=== PATIENT | female | born 1945 | race Caucasian/White ===

== ENCOUNTER 2017-11-07 06:37 | Day surgery (SDC) | payer OTHER ==
[2017-11-07] MEDS ORDERED: LR 1,000 ML IV ONE (06:55)
[2017-11-07] MEDS ORDERED: CLINDAMYCIN 900 MG/DEXTROSE 50 ML IV ONE (07:00)
--- NOTE | 2017-11-07 07:12 | PDHPUP ---
History & Physical Update H&P update statement: This history and physical update is based on an assessment of the patient which was completed after admission or registration (within 24 hours), but prior to the surgery/procedure. updated
[2017-11-07 07:20] VITALS: PULSE 67
[2017-11-07] MEDS ORDERED: MIDAZOLAM 2 MG/2 ML VIAL IVP ONE (07:58)
--- NOTE | 2017-11-07 08:00 | PDANEPAE ---
ANE History of Present Illness vascular access port placement ANE Past Medical History - Cardiovascular History Hx Hypertension: Yes Hx Arrhythmias: No Hx Chest Pain: No Hx Coronary Artery / Peripheral Vascular Disease: No Hx CHF / Valvular Disease: No Hx Palpitations: No Cardiovascular History Comment: POSS MILD MURMUR - Pulmonary History Hx COPD: No Hx Asthma/Reactive Airway Disease: No Hx Recent Upper Respiratory Infection: No Hx Oxygen in Use at Home: No Hx Sleep Apnea: No Sleep Apnea Screening Result - Last Documented: Negative - Neurologic History Hx Cerebrovascular Accident: No Hx Seizures: No Hx Dementia: No - Endocrine History Hx Diabetes: Yes Endocrine History Comment: HYPOTHYROID. POSS BORDERLINE DM - NO MEDS - Renal History Hx Renal Disorders: No - Liver History Hx Hepatic Disorders: No - Neurological & Psychiatric Hx Hx Neurological and Psychiatric Disorders: No - Cancer History Hx Cancer: Yes Cancer History Comment: COLON CANCER - Congenital Disorder History Hx Congenital Disorders: No - GI History Hx Gastrointestinal Disorders: No - Other Health History Other Health History: ANEMIA PRIOR TO COLECTOMY IN AUG 2017 HAD TRANSFUSION PRIOR TO SURGERY - TAKES DAILY IRON SUPPLEMENT - Chronic Pain History Chronic Pain: No - Surgical History Prior Surgeries: COLECTOMY 09/03/2017. HIP SURG. HYSTERECTOMY 1978. L HIP REPAIR W/HARDWARE ANE Review of Systems Review of systems is: negative Review of Systems: - Exercise capacity METS (RN): 4 METS ANE Patient History - Allergies Allergies/Adverse Reactions: atorvastatin [From Lipitor] Allergy (Verified 11/06/17 17:35) LISTLESSNESS cephalexin [From Keflex] Allergy (Verified 11/06/17 17:35) Rash levofloxacin [From Levaquin] Allergy (Verified 11/06/17 17:35) Rash Penicillins Allergy (Verified 11/06/17 17:35) SWELLING ARM - Home Medications Home medications: home medication list seen and reviewed Home Medications: Bupropion HCl 11/06/17 [Last Taken 11/07/17] Fluoxetine HCl 11/06/17 [Last Taken 11/07/17] Herbals/Supplements -Info Only 11/06/17 [Last Taken 11/06/17] Iron 11/06/17 [Last Taken 11/07/17] Levothyroxine 11/06/17 [Last Taken 11/07/17] Olmesartan Medoxomil 11/06/17 [Last Taken 11/07/17] Rosuvastatin Calcium 11/06/17 [Last Taken 11/07/17] Vascepa 11/06/17 [Last Taken 11/07/17] - NPO status NPO Since - Liquids (Date): 11/07/17 NPO Since - Liquids (Time): 05:30 NPO Since - Solids (Date): 11/06/17 NPO Since - Solids (Time): 20:00 - Anes Hx Anes Hx: no prior problems - Smoking Hx Smoking Status: Former smoker - Family Anes Hx Family Anes Hx: none Family Hx Anesthesia Complications: NEG ANE Labs/Vital Signs - Vital Signs Blood Pressure: 157/89 Heart Rate: 67 Respiratory Rate: 16 O2 Sat (%): 93 Height: 152.4 cm Weight: 70.307 kg ANE Physical Exam - Airway Neck exam: FROM Mallampati Score: Class 3 Mouth exam: normal dental/mouth exam - Pulmonary Pulmonary: no respiratory distress - Cardiovascular Cardiovascular: regular rate and rhythym - ASA Status ASA Status: II ANE Anesthesia Plan Anesthesia Plan: GA w LMA
[2017-11-07] MEDS ORDERED: BACITRACIN ZINC 14.2 GM OINTTUBE TP ONE (08:05)
[2017-11-07] MEDS ORDERED: LIDOCAINE 1% 300 MG/30 ML SDV ONE (08:05)
[2017-11-07] MEDS ORDERED: BUPIVACAINE 0.5% 30 ML SDV ONE (08:06)
[2017-11-07] MEDS ORDERED: DEXAMETHASONE 4 MG/ML VIAL ONE (08:30)
[2017-11-07] MEDS ORDERED: PROPOFOL 200 MG/20 ML VIAL ONE (08:30)
[2017-11-07] MEDS ORDERED: fentaNYL 100 MCG/2 ML INJ ONE (08:30)
[2017-11-07] MEDS ORDERED: ONDANSETRON 4 MG/2 ML VIAL ONE (08:30)
[2017-11-07] MEDS ORDERED: LIDOCAINE 2% 100 MG/5 ML SYR ONE (08:30)
[2017-11-07] MEDS ORDERED: LABETALOL HCL 5 MG/ML 20 ML MDV IVP PRN (09:05)
[2017-11-07] MEDS ORDERED: OXYCODONE/APAP 5/325 TAB PO PRN (09:05)
[2017-11-07] MEDS ORDERED: HYDROmorphONE/DILAUDID 1 MG/ML INJ IVP PRN (09:05)
[2017-11-07] MEDS ORDERED: fentaNYL 100 MCG/2 ML INJ IVP PRN (09:05)
[2017-11-07] MEDS ORDERED: DEXAMETHASONE 4 MG/ML VIAL IVP PRN (09:05)
[2017-11-07] MEDS ORDERED: PROMETHAZINE HCL 25 MG/ML INJ IVP PRN (09:05)
[2017-11-07] MEDS ORDERED: NALOXONE HCL 0.4 MG/ML INJ IVP PRN (09:05)
[2017-11-07] MEDS ORDERED: ACETAMINOPHEN 500 MG TAB PO PRN (09:05)
[2017-11-07] MEDS ORDERED: HYDROCODONE/APAP 5/325 TAB PO PRN (09:05)
--- NOTE | 2017-11-07 09:07 | POSTANESTH ---
Post Anesthetic Evaluation Cardiovascular Status: Similar to Pre-Op Cond Respiratory Status: Normal, Stable, Similar to Pre-op Cond. Level of Consciousness/Mental Status: Can Participate in Eval, Moderately Sleepy Pain Control: Adequate, Prn Tx Ordered Nausea/Vomiting Control: Adequate, Prn Tx Ordered Complications Possibly Related to Anesthesia: None Noted
[2017-11-07] MEDS ORDERED: PHENYLEPHRINE HCL 100 MCG/ML SYR ONE (09:08)
[2017-11-07 09:47] VITALS: TEMP 97.3
[2017-11-07 10:29] VITALS: BP 162/82; RESP 14; O2SAT 96
--- NOTE | 2017-11-07 10:47 | POSTOPPROG ---
Post Op Note Date of Operation: 11/07/17 Surgeon: Beltran Davis Anesthesiologist: Dr Treviño Anesthesia: GET(General Endotracheal) Pre-op Diagnosis: need for access, for chemo Post-op Diagnosis: same Indication: same Procedure: port placement Inf/Abcess present in the surg proc area at time of surgery?: No Depth: Deep Incisional (Fascial) EBL: Minimal
--- NOTE | 2017-11-07 11:28 | GOP ---
[f rep st] OPERATIVE REPORT DATE OF OPERATION: 11/07/2017 SURGEON: Beltran Davis MD PREOPERATIVE DIAGNOSIS: Colon cancer. POSTOPERATIVE DIAGNOSIS: Colon cancer. PROCEDURE PERFORMED: Left subclavian port placement with fluoroscopic guidance. FINDINGS: Patient was found to have good position and flow of the catheter. DESCRIPTION OF PROCEDURE: Patient was taken to the operating room where she received satisfactory ge neral laryngeal mask anesthesia by Dr. Treviño. She was placed in supine position, prepped and drap ed in the usual sterile fashion and then placed in Trendelenburg. A single stick was made in the lef t subclavian vein. Guidewire was introduced, position was confirmed with fluoroscopy. A subcu pocke t was made in the 2nd intercostal space. Port tubing was passed from that pocket to the subclavian i nsertion site. It was then trimmed to the appropriate length using fluoroscopic guidance and introdu tessy via the introducer sheath and dilator system which was passed over the wire under fluoroscopic gu idance. The catheter was positioned in the right atrium. Good backflow was present. The port was f illed with a heparin flush and then secured to the fascia with 3-0 Vicryl suture. Pocket was closed with 3-0 Vicryl running suture and the skin with a 4-0 Prolene subcuticular stitch. The entrance sit e was also closed with a Prolene mattress suture. All layers were infiltrated with 0.5% Marcaine and then dressed. She tolerated the procedure well. She was taken to recovery room in good condition. There were no complications. /[id number]/MODL
== END 2017-11-07 10:35 | disposition home or self-care (01) ==
LOC: FSGY 06:37
PROVIDERS: ATTEND Surgery
PROC: 0JH60XZ Insertion of Tunneled Vascular Access Device into Chest Subcutaneous Tissue and Fascia, Open Approach (ICD-10-PCS; principal; 2017-11-07 08:30)
PROC: 02HV33Z Insertion of Infusion Device into Superior Vena Cava, Percutaneous Approach (ICD-10-PCS; principal; 2017-11-07 08:30)
DX: C78.5 Secondary malignant neoplasm of large intestine and rectum (principal); E03.9 Hypothyroidism, unspecified; Z87.891 Personal history of nicotine dependence
CPT/HCPCS: C1788; J1100; J1642; J2001; J2250; J2370; J2405; J2704; J3010

== ENCOUNTER 2018-01-25 19:13 | Inpatient (IN) | payer OTHER ==
[2018-01-25] MEDS ORDERED: LIDOCAINE/PRILOCAINE 1 EACH CRTUBE TP ONE (20:02)
[2018-01-25] MEDS ORDERED: NS 500 ML IV ONE ×2 (20:40→23:13)
--- NOTE | 2018-01-25 20:52 | EDPHY ---
H & P Time Seen by Provider: 01/25/18 20:12 HPI/ROS: CHIEF COMPLAINT: Weakness, dehydration, diarrhea HISTORY OF PRESENT ILLNESS: Patient is a 72-year-old female with a history of colon cancer on her 5th round of chemotherapy who presents emergency department with nausea, vomiting and diarrhea. Her symptoms started on Saturday. She saw Dr. Scott in the office. She was treated with IV normal saline. On Saturday her daughter and her son-in-law also got sick with diarrhea. They felt as though"it was a bug."However, the patient's symptoms have persisted. She continues to have episodes of watery diarrhea. She has decreased energy. Mild nausea with no vomiting. REVIEW OF SYSTEMS: My complete review of systems is negative except as mentioned in the HPI. Past Medical/Surgical History: Includes colon cancer, hypothyroidism, hypertension, depression, anemia Past surgical history: Colon resection, left femur, total abdominal hysterectomy Social history: The patient lives at home. She no longer smokes. Smoking Status: Former smoker Physical Exam: Vitals noted GENERAL: No acute distress, alert. HEENT: Eyes normal to inspection, normal pharynx, no signs of dehydration. NECK: [No thyromegaly, no lymphadenopathy, supple. RESPIRATORY: Clear to auscultation bilaterally, no rales, rhonchi or wheezing. CVS: Regular rate and rhythm, no rubs, murmurs, or gallops. ABDOMEN: Soft, nontender, nondistended, no organomegaly. Benign BACK: Normal to inspection, no CVA tenderness. SKIN: Normal color, no rash, warm, dry. No pallor. EXTREMITIES: No pedal edema, no calf tenderness, no Homans sign or cords, no joint swelling. NEURO/PSYCH: Alert and oriented x3, normal mood and affect, normal motor sensory exam. No obvious cranial nerve deficit. Constitutional: Initial Vital Signs Temperature (C) 36.7 C 01/25/18 20:30 Heart Rate 81 01/25/18 20:30 Respiratory Rate 13 01/25/18 20:30 Blood Pressure 105/58 L 01/25/18 20:30 O2 Sat (%) 93 01/25/18 20:30 O2 Delivery Mode Room Air Allergies/Adverse Reactions: atorvastatin [From Lipitor] Allergy (Verified 11/06/17 17:35) LISTLESSNESS cephalexin [From Keflex] Allergy (Verified 11/06/17 17:35) Rash levofloxacin [From Levaquin] Allergy (Verified 11/06/17 17:35) Rash Penicillins Allergy (Verified 11/06/17 17:35) SWELLING ARM Home Medications: Medication Instructions Recorded Bupropion HCl 11/06/17 Fluoxetine HCl 11/06/17 Herbals/Supplements -Info Only 11/06/17 Iron 11/06/17 Levothyroxine 11/06/17 Olmesartan Medoxomil 11/06/17 Rosuvastatin Calcium 11/06/17 Vascepa 11/06/17 Medical Decision Making ED Course/Re-evaluation: In the emergency department I discussed possible etiologies with the patient and family. I answered all her questions. IV was placed. Patient given normal saline for hydration. She is given Zofran 4 mg IV for nausea. Laboratory studies were ordered. I reviewed the patient's laboratory studies. Patient's white count was 9. She is not anemic. Platelets are normal. Patient's chemistry panel is abnormal. Her sodium was low 133. Potassium 3.7. Carbon dioxide 16. Anion gap elevated at 17. BUN 43 and creatinine elevated at 2.9. Stool studies are pending. I discussed the results with the patient and family. I answered all her questions. I discussed the case with Dr. Casey. He will admit the patient for further care and evaluation. Differential Diagnosis: My differential includes but is not limited to viral illness, gastroenteritis, small-bowel obstruction, perforation, dehydration, electrolyte abnormality, sugar abnormality, influenza - Data Points Laboratory Results: Laboratory Results 01/25/18 20:45 01/25/18 20:45 01/25/18 01/25/18 01/25/18 20:45 20:45 20:45 WBC 9.84 10^3/uL H 10^3/uL (3.80-9.50) RBC 4.84 10^6/uL 10^6/uL (4.18-5.33) Hgb 15.5 g/dL g/dL (12.6-16.3) Hct 42.9 % % (38.0-47.0) MCV 88.6 fL fL (81.5-99.8) MCH 32.0 pg pg (27.9-34.1) MCHC 36.1 g/dL g/dL (32.4-36.7) RDW 19.7 % H % (11.5-15.2) Plt Count 162 10^3/uL 10^3/uL (150-400) MPV 9.5 fL fL (8.7-11.7) Neut % (Auto) 70.9 % % (39.3-74.2) Lymph % (Auto) 14.4 % L % (15.0-45.0) Maverick % (Auto) 13.4 % H % (4.5-13.0) Eos % (Auto) 0.5 % L % (0.6-7.6) Baso % (Auto) 0.4 % % (0.3-1.7) Nucleat RBC Rel Count 0.0 % % (0.0-0.2) Absolute Neuts (auto) 6.97 10^3/uL H 10^3/uL (1.70-6.50) Absolute Lymphs (auto) 1.42 10^3/uL 10^3/uL (1.00-3.00) Absolute Monos (auto) 1.32 10^3/uL H 10^3/uL (0.30-0.80) Absolute Eos (auto) 0.05 10^3/uL 10^3/uL (0.03-0.40) Absolute Basos (auto) 0.04 10^3/uL 10^3/uL (0.02-0.10) Absolute Nucleated RBC 0.00 10^3/uL 10^3/uL (0-0.01) Immature Gran % 0.4 % % (0.0-1.1) Immature Gran # 0.04 10^3/uL 10^3/uL (0.00-0.10) PT Pending INR Pending APTT Pending Sodium 133 mEq/L L mEq/L (135-145) Potassium 3.7 mEq/L mEq/L (3.5-5.2) Chloride 100 mEq/L mEq/L (97-110) Carbon Dioxide 16 mEq/l L mEq/l (22-31) Anion Gap 17 mEq/L H mEq/L (8-16) BUN 43 mg/dL H mg/dL (7-23) Creatinine 2.9 mg/dL H mg/dL (0.6-1.0) Estimated GFR 16 Glucose 126 mg/dL H mg/dL (70-100) Calcium 9.9 mg/dL mg/dL (8.5-10.4) Total Bilirubin 1.2 mg/dL mg/dL (0.1-1.4) Conjugated Bilirubin 0.5 mg/dL mg/dL (0.0-0.5) Unconjugated Bilirubin 0.7 mg/dL mg/dL (0.0-1.1) AST 23 IU/L IU/L (14-46) ALT 35 IU/L IU/L (9-52) Alkaline Phosphatase 95 IU/L IU/L (38-126) Total Protein 7.2 g/dL g/dL (6.3-8.2) Albumin 4.4 g/dL g/dL (3.5-5.0) Lipase 394 IU/L H IU/L (23-300) Medications Given: Discontinued Medications Sodium Chloride (Ns) 500 mls @ 0 mls/hr IV EDNOW ONE; Wide Open PRN Reason: Protocol Stop: 01/25/18 20:41 Last Admin: 01/25/18 21:02 Dose: 500 mls Departure - Departure Disposition: [facility] Inpatient Acute Clinical Impression: Weakness, Renal failure Diarrhea Qualifiers: Diarrhea type: unspecified type Qualified Code(s): R19.7 - Diarrhea, unspecified Condition: Good Referrals: FARHAT VALDIVIA [Other] - As per Instructions
[2018-01-25 21:05] LABS: PLATELET COUNT 162 10^3/uL (150-400)
[2018-01-25 21:37] LABS: INR 1.11 (0.83-1.16); PROTIME(PATIENT) 14.5 SEC (12.0-15.0)
[2018-01-25] MEDS ORDERED: PROMETHAZINE HCL 25 MG/ML INJ IVP PRN (22:27)
[2018-01-25] MEDS ORDERED: ONDANSETRON 4 MG/2 ML VIAL IVP PRN (22:27)
[2018-01-25] MEDS ORDERED: ACETAMINOPHEN 325 MG TAB PO PRN (22:27)
[2018-01-25] MEDS ORDERED: ONDANSETRON DISINTEGRATING 4 MG TAB PO PRN (22:27)
[2018-01-25] MEDS ORDERED: MELATONIN 3 MG TAB PO PRN (23:15)
[2018-01-26] MEDS: NS 1,000 ML IV SCH ×2 (00:17→06:29)
--- NOTE | 2018-01-26 02:12 | PDGENHP ---
History and Physical - Chief Complaint Diarrhea - History of Present Illness 72 yo F w/ hx of colon CA presents with diarrhea. Patient has her last session of chemotherapy on 01/16. On Saturday of this week she began to notice some nausea. Then, yesterday, she developed frequent diarrhea. Of note, 3 healthy family members developed similar symptoms that lasted for about 24 hours. Their symptoms have resolved but the patient's persist. She denies significant vomiting or abdominal pain. In the ED work-up notable for significant STEPHANY. History Information - Allergies/Home Medication List Allergies/Adverse Reactions: atorvastatin [From Lipitor] Allergy (Verified 11/06/17 17:35) LISTLESSNESS cephalexin [From Keflex] Allergy (Verified 11/06/17 17:35) Rash levofloxacin [From Levaquin] Allergy (Verified 11/06/17 17:35) Rash Penicillins Allergy (Verified 11/06/17 17:35) SWELLING ARM Home Medications: FLUoxetine [Prozac 20 MG (*)] 20 mg PO DAILY #0 11/06/17 [Last Taken 01/24/18 08 :00] Ferrous Sulfate [Ferrous Sulf 325 MG (*)] 325 mg PO BID #0 11/06/17 [Last Taken 01/24/18 21:00] Levothyroxine [Synthroid 125 mcg (*)] 125 mcg PO DAILY06 #0 11/06/17 [Last Taken 01/24/18 08:00] Olmesartan Medoxomil [Benicar 20 mg (*)] 20 mg PO DAILY #0 11/06/17 [Last Taken 01/24/18 08:00] Rosuvastatin Calcium [Crestor] 10 mg PO DAILY #0 11/06/17 [Last Taken 01/24/18 08:00] buPROPion XL [Wellbutrin 150mg XL] 150 mg PO DAILY #0 11/06/17 [Last Taken 01/24 08:00] Acetaminophen [Tylenol ES 500 mg (*)] 500 mg PO DAILY PRN 01/25/18 [Last Taken 01/22/18] Herbals/Supplements -Info Only 1 ea PO DAILY 01/25/18 [Last Taken Unknown] Multivitamins [Multivitamin (*)] 1 tab PO DAILY 01/25/18 [Last Taken 01/24/18 08 :00] Ondansetron Odt [Zofran Odt 4 mg (*)] 4 mg PO DAILY PRN 01/25/18 [Last Taken 21:00] I have personally reviewed and updated: family history, medical history - Past Medical History cancer (Colon CA) Additional medical history: Hypothyroid - Surgical History Reports: colectomy, hysterectomy - Family History Additional family history: Denies family hx of colon CA - Social History Smoking Status: Former smoker Review of Systems Review of Systems: ROS: 10pt was reviewed & negative except for what was stated in HPI & below Physical Exam Physical Exam: Temp Pulse Resp BP Pulse Ox 36.6 C 73 15 97/72 L 96 01/25/18 23:18 01/25/18 23:18 01/25/18 23:18 01/25/18 23:18 01/25/18 23:18 Constitutional: no apparent distress, not in pain Eyes: PERRL, EOMI Ears, Nose, Mouth, Throat: moist mucous membranes, no oral mucosal ulcers Cardiovascular: regular rate and rhythym, no murmur, rub, or gallop Respiratory: no respiratory distress, no rales or rhonchi Gastrointestinal: normoactive bowel sounds, soft, non-tender abdomen Skin: warm, normal color Musculoskeletal: full muscle strength, no muscle tenderness Neurologic: AAOx3, CN II-XII Intact Psychiatric: interacting appropriately, not anxious Lab Data & Imaging Review 01/25/18 20:45 01/25/18 20:45 WBC 9.84 10^3/uL (3.80-9.50) H 01/25/18 20:45 RBC 4.84 10^6/uL (4.18-5.33) 01/25/18 20:45 Hgb 15.5 g/dL (12.6-16.3) 01/25/18 20:45 Hct 42.9 % (38.0-47.0) 01/25/18 20:45 MCV 88.6 fL (81.5-99.8) 01/25/18 20:45 MCH 32.0 pg (27.9-34.1) 01/25/18 20:45 MCHC 36.1 g/dL (32.4-36.7) 01/25/18 20:45 RDW 19.7 % (11.5-15.2) H 01/25/18 20:45 Plt Count 162 10^3/uL (150-400) 01/25/18 20:45 MPV 9.5 fL (8.7-11.7) 01/25/18 20:45 Neut % (Auto) 70.9 % (39.3-74.2) 01/25/18 20:45 Lymph % (Auto) 14.4 % (15.0-45.0) L 01/25/18 20:45 Gregg % (Auto) 13.4 % (4.5-13.0) H 01/25/18 20:45 Eos % (Auto) 0.5 % (0.6-7.6) L 01/25/18 20:45 Baso % (Auto) 0.4 % (0.3-1.7) 01/25/18 20:45 Nucleat RBC Rel Count 0.0 % (0.0-0.2) 01/25/18 20:45 Absolute Neuts (auto) 6.97 10^3/uL (1.70-6.50) H 01/25/18 20:45 Absolute Lymphs (auto) 1.42 10^3/uL (1.00-3.00) 01/25/18 20:45 Absolute Monos (auto) 1.32 10^3/uL (0.30-0.80) H 01/25/18 20:45 Absolute Eos (auto) 0.05 10^3/uL (0.03-0.40) 01/25/18 20:45 Absolute Basos (auto) 0.04 10^3/uL (0.02-0.10) 01/25/18 20:45 Absolute Nucleated RBC 0.00 10^3/uL (0-0.01) 01/25/18 20:45 Immature Gran % 0.4 % (0.0-1.1) 01/25/18 20:45 Immature Gran # 0.04 10^3/uL (0.00-0.10) 01/25/18 20:45 PT 14.5 SEC (12.0-15.0) 01/25/18 20:45 INR 1.11 (0.83-1.16) 01/25/18 20:45 APTT 21.3 SEC (23.0-38.0) L 01/25/18 20:45 Sodium 133 mEq/L (135-145) L 01/25/18 20:45 Potassium 3.7 mEq/L (3.5-5.2) 01/25/18 20:45 Chloride 100 mEq/L (97-110) 01/25/18 20:45 Carbon Dioxide 16 mEq/l (22-31) L 01/25/18 20:45 Anion Gap 17 mEq/L (8-16) H 01/25/18 20:45 BUN 43 mg/dL (7-23) H 01/25/18 20:45 Creatinine 2.9 mg/dL (0.6-1.0) H 01/25/18 20:45 Estimated GFR 16 01/25/18 20:45 Glucose 126 mg/dL (70-100) H 01/25/18 20:45 Calcium 9.9 mg/dL (8.5-10.4) 01/25/18 20:45 Total Bilirubin 1.2 mg/dL (0.1-1.4) 01/25/18 20:45 Conjugated Bilirubin 0.5 mg/dL (0.0-0.5) 01/25/18 20:45 Unconjugated Bilirubin 0.7 mg/dL (0.0-1.1) 01/25/18 20:45 AST 23 IU/L (14-46) 01/25/18 20:45 ALT 35 IU/L (9-52) 01/25/18 20:45 Alkaline Phosphatase 95 IU/L (38-126) 01/25/18 20:45 Total Protein 7.2 g/dL (6.3-8.2) 01/25/18 20:45 Albumin 4.4 g/dL (3.5-5.0) 01/25/18 20:45 Lipase 394 IU/L (23-300) H 01/25/18 20:45 Urine Color RONDA 01/25/18 23:55 Urine Appearance MODERATELY TURBID 01/25/18 23:55 Urine pH 5.0 (5.0-7.5) 01/25/18 23:55 Ur Specific [place] 1.027 (1.002-1.030) 01/25/18 23:55 Urine Protein 2+ (NEGATIVE) H 01/25/18 23:55 Urine Ketones TRACE (NEGATIVE) H 01/25/18 23:55 Urine Blood 2+ (NEGATIVE) H 01/25/18 23:55 Urine Nitrate NEGATIVE (NEGATIVE) 01/25/18 23:55 Urine Bilirubin NEGATIVE (NEGATIVE) 01/25/18 23:55 Urine Urobilinogen 2.0 EU (0.2-1.0) H 01/25/18 23:55 Ur Leukocyte Esterase 3+ (NEGATIVE) H 01/25/18 23:55 Urine RBC 15-25 /hpf (0-3) H 01/25/18 23:55 Urine WBC 50-182 /hpf (0-3) H 01/25/18 23:55 Ur Epithelial Cells TRACE /lpf (NONE-1+) 01/25/18 23:55 Calcium Oxalate Crystal PRESENT /hpf (NONE-1+) 01/25/18 23:55 Urine Bacteria 2+ /hpf (NONE SEEN) H 01/25/18 23:55 Hyaline Casts >182 /lpf (0-1) H 01/25/18 23:55 Urine Mucus 4+ /lpf (NONE-1+) H 01/25/18 23:55 Ur Random Creatinine 307.9 mg/dL 01/25/18 23:55 Ur Random Sodium 17 mEq/L (30-90) L 01/25/18 23:55 Urine Glucose NEGATIVE (NEGATIVE) 01/25/18 23:55 Assessment & Plan Assessment: 72 yo F w/ colon CA presents with diarrhea. Plan: 1. Diarrhea - I suspect this is infectious noting 3 family members have similar symptoms. Noting highly infectious nature this is most likely a viral gastroenteritis. However, noting patient's immunocompromised state and frequent healthcare exposures, it is important to rule out C. Diff as well. - GI PCR - IVF, anti-emetics - Await results of stool PCR prior to starting anti-diarrheal medications - Contact precautions 2. STEPHANY - Serum Cr 2.9 on admission increased from normal baseline. I suspect pre -renal azotemia based on above. - IVF and monitor BMP - Calculate FeNa 3. Colon CA - T3 N2a M0 at time of diagnosis; last chemo on 3.8. 4. Hypothyroid - On LTX 5. HTN - On olmesartan 6. HLD - Continue statin Diet - Regular (advised bland diet to patient for now) Code - Full Ppx - LMWH Dispo - Admit under observation status
[2018-01-26 04:54] LABS: PLATELET COUNT 163 10^3/uL (150-400)
[2018-01-26] MEDS: HEPARIN 5,000 UNIT/0.5 ML SYR SC SCH ×3 (06:08→22:46)
[2018-01-26] MEDS: ROSUVASTATIN CALCIUM 10 MG TAB PO SCH (09:25)
[2018-01-26] MEDS: MULTIVITAMINS 1 EACH TAB PO SCH (09:25)
[2018-01-26] MEDS: FERROUS SULFATE 325 MG TAB PO SCH ×2 (09:25→22:48)
[2018-01-26] MEDS: FLUoxetine 20 MG CAP PO SCH (09:25)
[2018-01-26] MEDS: buPROPion XL 150 MG TAB PO SCH (09:25)
[2018-01-26] MEDS: LEVOTHYROXINE 125 MCG TAB PO SCH (09:35)
--- NOTE | 2018-01-26 11:22 | ASMTCMCOM ---
CM Note CM Note Notes: Chart reviewed for discharge planning purposes. Patient lives locally here with daughter. Has colon cancer and has been very tolerant of treatment. This week however she has had severe diarrhea which has led to dehyration and STEPHANY. Needs to be determined at this time. CM to follow. Date Signed: 01/26/2018 11:22 AM Electronically Signed By:Merari Porter RN
--- NOTE | 2018-01-26 17:48 | HOSPPROG ---
Hospitalist Progress Note Assessment/Plan: DIAGNOSES: -acute gastroenteritis, suspect viral, no organism yet identified on Stool studies * Nausea vomiting have stopped but still with voluminous diarrhea frequently * With absence of salmonella E coli or C difficile should be able to start some anti diarrheal now * Her cancer therapy is certainly affecting her ability to fight off this infection; also question if her chemotherapy could be directly aggravating her diarrhea -acute kidney injury, hemodynamic etiology with dehydration and anti attempt and receptor harrison * Currently holding ARB * No change in kidney function yet today -mild hypokalemia is new today due to GI losses -new onset of epigastric pain with swallowing today, suspect that this is related to the vomiting she was having at home * Would really like her be able to begin eating and drinking better, will treat with Carafate and Pepcid at this point and follow her symptoms * Have reviewed with her nurse at to be careful with her medications scheduling so that Carafate does not interfere with absorption of other medicines -colon cancer on chemotherapy -pyuria present on UA is not associated with any bladder or urethral or other voiding symptoms. Doubt this represents UTI at this time, most likely due to her acute renal insufficiency but will follow closely -hyponatremia is due to GI losses, improving with IV replacement At this point the patient is holding steady since yesterday but still quite symptomatic, still with acute renal failure of significance, not able to hydrate herself adequately orally. Given her immune compromise it may take a while before she can fight this infection off. PLANS: -continue IV hydration -follow renal function closely -add small amount of potassium on follow closely overnight, need to be very careful with her renal insufficiency but I am holding her ARB -will add some anti diarrheal at this point -Pepcid and Carafate for her epigastric symptoms -will try some antidiarrheal medicine at this time -follow blood counts closely -DVT prophylaxis Have reviewed all of the above in detail at length with the patient and her daughter at the bedside SUBJECTIVE: New onset of epigastric discomfort with swallowing today that is quite bothersome and prevented her from eating and drinking well No nausea at this time appetite is poor but she is starting to feel somewhat hungry Still with voluminous diarrhea without abdominal pain or bleeding No fever symptoms and no other new symptoms at this time D No rashes or skin lesions OBJECTIVE Vitals reviewed: 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, 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: Exam: alert oriented skin warm dry color ok, no rashes resps not labored lungs clear BSs heart regular abd soft nondistended nontender, bowel sounds present limbs warm, no edema Good capillary refill in her digits iv site ok Laboratory data: Creatinine still at 2.9, BUN slightly higher 4.6, potassium a bit low Microbiology data: No organisms identified on GI pathogen panel Objective: Vital Signs Temp Pulse Resp BP Pulse Ox 36.8 C 70 17 145/67 H 93 01/26/18 16:16 01/26/18 16:16 01/26/18 16:16 01/26/18 16:16 01/26/18 16:16 Microbiology 01/26/18 00:00 Gastrointestinal Tract Panel (PCR) - Final Stool No Organism Detected Laboratory Results 01/26/18 04:28 01/26/18 04:28 01/25/18 01/26/18 01/27/18 06:59 06:59 06:59 Intake Total 2100 Balance 2100 PT 14.5 SEC (12.0-15.0) 01/25/18 20:45 INR 1.11 (0.83-1.16) 01/25/18 20:45 - Time Spent With Patient Time Spent with Patient: greater than 35 minutes Time Spent with Patient: Greater than 35 minutes spent on this patients care, greater than 50% of time spent counseling, educating, and coordinating care regarding the above mentioned plan. ICD10 Worksheet Patient Problems: Problems Problem Status Onset Diarrhea Acute Renal failure Acute Weakness Acute
--- NOTE | 2018-01-26 18:15 | PDMN ---
Medical Necessity Medical necessity: C/M review: Patient meets INPT crtieria under [facility] M-170 Gastroenteritis: Acute and persistent gastroenteritis, suspect viral, nausea/ vomiting stopped, ongoing voluminous diarrhea frequently, acute kidney injury, BUN 43, 46, Cr 2.9, 2.9, mild hypokalemia, 01/26/2018 K 3.3, new onset of epigastric pain with swallowing 01/26/2018, pyuria present on UA is not associated with any bladder or urethreal or other voiding symptoms, hyponatremia , Na 133 requiring ongoing IV D5W with 10 meq KCl 100 ml/hr. infusion, add antidiarrheal, Pepcid, Carafate, follow renal functions and blood counts closely , comorbid colon cancer on current chemotherapy. MD anticipates > 2 MN LOS for ongoing med nec for eval and TX of above. patient is Medicare Advantage which follows guidelines CMS puts forth.
[2018-01-26] MEDS: POTASSIUM Cl (KCl) 10 MEQ in D5W 1/2 NS 1,000 ML IV SCH (19:20)
[2018-01-26] MEDS: DIPHENOXYLATE/ATROPINE LOMOTIL 1 TAB PO PRN (19:26)
[2018-01-26] MEDS: SUCRALFATE 1 GM/10 ML UDCUP PO SCH (22:47)
[2018-01-26] MEDS: FAMOTIDINE 20 MG TAB PO SCH (22:48)
[2018-01-27] MEDS: DIPHENOXYLATE/ATROPINE LOMOTIL 1 TAB PO PRN ×2 (02:19→18:30)
[2018-01-27 04:39] LABS: PLATELET COUNT 123 10^3/uL (150-400)
[2018-01-27] MEDS: POTASSIUM Cl (KCl) 10 MEQ in D5W 1/2 NS 1,000 ML IV SCH ×2 (05:16→16:50)
[2018-01-27] MEDS ORDERED: POTASSIUM CL 20 MEQ TAB PO ONE (06:00)
[2018-01-27] MEDS: HEPARIN 5,000 UNIT/0.5 ML SYR SC SCH ×3 (08:11→21:19)
[2018-01-27] MEDS: FLUoxetine 20 MG CAP PO SCH (10:15)
[2018-01-27] MEDS: FERROUS SULFATE 325 MG TAB PO SCH ×2 (10:16→21:20)
[2018-01-27] MEDS: ROSUVASTATIN CALCIUM 10 MG TAB PO SCH (10:16)
[2018-01-27] MEDS: MULTIVITAMINS 1 EACH TAB PO SCH (10:16)
[2018-01-27] MEDS: buPROPion XL 150 MG TAB PO SCH (10:16)
[2018-01-27] MEDS: LEVOTHYROXINE 125 MCG TAB PO SCH (10:18)
[2018-01-27] MEDS: SUCRALFATE 1 GM/10 ML UDCUP PO SCH ×4 (10:34→21:24)
--- NOTE | 2018-01-27 14:23 | ASMTCMCOM ---
CM Note CM Note Notes: Chart reviewed. Patient is responding to therapy. Kidney function improving. Met with patient who appears markedly better. MD to round on patient later. Likely no needs at this point in time. CM available should needs arise. Date Signed: 01/27/2018 02:23 PM Electronically Signed By:Merari Porter RN
[2018-01-27] MEDS ORDERED: ZOLPIDEM TARTRATE 5 MG TAB PO PRN ×2 (15:01→21:00)
--- NOTE | 2018-01-27 15:27 | GCON ---
[f rep st] CONSULTATION DATE OF CONSULTATION: 1945 PRIMARY ONCOLOGIST: Cr Scott M.D. REASON FOR CONSULTATION: E and M for colon cancer. HISTORY OF PRESENT ILLNESS: Elizabeth is a 72-year-old woman who was diagnosed in July 2017 with a metastatic colon cancer. At the time, she presented to the hospital in the [facility] area with abdominal pain. She had a resection of the mass, 6 positive lymph nodes and initially no metastasis on CT scan. She moved to [place] to be close to her daughter and she had a couple PET avid nodules. Dr. Scott started her on FOLFOX plus bevacizumab. He reports that the CT scan she had recently showed significant improvement and abnormal lymphadenopathy. The patient has been tolerating the chemotherapy play extremely well. Last chemotherapy was on January 16. She has a little bit of fatigue afterwards, but typically no diarrhea or vomiting. 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 She presented to the office last Saturday with loose stools. She was hydrated. Labs were taken. Her creatinine was up a little bit to 1.2. C diff was negative. She seemed to be doing a little bit better after that. The next day , both her daughter, son-in-law, and grandchild came down with a GI illness with diarrhea, nausea and vomiting, so the thought was it might be just a GI virus. However, on Saturday she started having severe watery diarrhea, but no fever. She was brought in to the hospital. Her blood pressure was low. Her creatinine was up to 2.9. She was started on hydration, and since hospitalization, her creatinine has dropped down to 1.1. Her stools are starting to form and be less watery. Overall, she is feeling better. ALLERGIES: She is allergic to atorvastatin, cephalexin, levofloxacin, and penicillins. HOME MEDICATIONS: Included ondansetron as needed, Crestor, multivitamins, Benicar, levothyroxine, iron sulfate, fluoxetine and bupropion. She is also on Ambien at bedtime. PAST MEDICAL HISTORY: Chronic illnesses include colon cancer as described above , hypothyroidism, insomnia, elevated cholesterol. SURGICAL HISTORY: Includes colon cancer, partial colectomy, hip replacement and hysterectomy. FAMILY HISTORY: No family history of colon cancer. Father of lung cancer. SOCIAL HISTORY: She is . 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 She has 2 children who are alive and well. REVIEW OF SYSTEMS: A 10-point review of systems was performed. Pertinent positives as per HPI, otherwise negative. PHYSICAL EXAM: VITAL SIGNS: Temperature is 36.6, pulse 63, blood pressure 117/ 51. GENERAL: She is a well-appearing woman in no distress. Her daughter is with her today. HEENT: Unremarkable. LUNGS: Clear. CARDIAC: Regular. ABDOMEN: Soft, nontender with positive bowel sounds. NEUROLOGICAL: Grossly intact. SKIN: No rash. LABS: On arrival, white count was normal. Today her white count is 5800, hemoglobin 12 g/dL, platelet count 123,000. Chemistries on arrival: BUN and creatinine 43 and 2.9, sodium 133. Today sodium is 139, potassium is down to 2.8, BUN and creatinine have improved to 32 and 1.1. Her UA was abnormal. GI panel was negative. IMPRESSION: 1. Acute gastroenteritis. 2. Acute kidney injury secondary to dehydration and ARB. 3. Hypokalemia. 4. Metastatic colon cancer as per history of present illness. I agree with the hospitalist that this appears to be an acute viral illness rather than due to her chemotherapy, although chemotherapy may have made her more sensitive to the effects of the virus, or made it more difficult for her to recover from it. Everything else seems to be more related to the diarrhea. For example, her baseline creatinine is 0.8-0.9, and that seems to be returning to baseline with hydration. Her hypokalemia is probably due to loss from the severe diarrhea, and she is currently undergoing replacement. She is due for chemotherapy this and I told her we are going to see how she is feeling , but recommend she keep that appointment for now. I do not recommend any further intervention at this time, but will be available for any questions that may arise. /[id number]/MODL MTDD
--- NOTE | 2018-01-27 16:42 | HOSPPROG ---
Hospitalist Progress Note Assessment/Plan: DIAGNOSES: -acute gastroenteritis, suspect viral, no organism yet identified on Stool studies * Nausea vomiting have stopped and now diarrhea is improving but still present * Her cancer therapy is certainly affecting her ability to fight off this infection; also question if her chemotherapy could be directly aggravating her diarrhea -acute kidney injury, hemodynamic etiology with dehydration and anti attempt and receptor harrison * Currently holding ARB * Renal function improved today -mild hypokalemia is new today due to GI losses -epigastric pain with swallowing, suspect that this is related to the vomiting she was having at home * Improving with Carafate and Pepcid at this point * Have reviewed with her nurse at to be careful with her medications scheduling so that Carafate does not interfere with absorption of other medicines -colon cancer on chemotherapy -pyuria present on UA is not associated with any bladder or urethral or other voiding symptoms. Doubt this represents UTI at this time, most likely due to her acute renal insufficiency but will follow closely -hyponatremia is due to GI losses, improving with IV replacement Starting to see some resolution of diarrhea, still not able to hydrate herself to keep up with the fluid losses that well yet but renal function improved PLANS: -continue IV hydration -follow renal function closely -add small amount of potassium on follow closely overnight, need to be very careful with her renal insufficiency but I am holding her ARB -continue anti diarrheal at this point -Pepcid and Carafate for her epigastric symptoms -follow blood counts closely -DVT prophylaxis Have reviewed all of the above in detail at length with the patient and her daughter at the bedside SUBJECTIVE: New onset of epigastric discomfort with swallowing today that is quite bothersome and prevented her from eating and drinking well No nausea at this time appetite is poor but she is starting to feel somewhat hungry Still with voluminous diarrhea without abdominal pain or bleeding No fever symptoms and no other new symptoms at this time D No rashes or skin lesions OBJECTIVE 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, 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: Exam: alert oriented skin warm dry color ok, no rashes resps not labored lungs clear BSs heart regular abd soft nondistended nontender, bowel sounds present limbs warm, no edema Good capillary refill in her digits iv site ok Laboratory data: Creatinine still at 2.9, BUN slightly higher 4.6, potassium a bit low Microbiology data: No organisms identified on GI pathogen panel Objective: Vital Signs Temp Pulse Resp BP Pulse Ox 36.9 C 75 15 122/67 H 95 01/27/18 16:15 01/27/18 16:15 01/27/18 16:15 01/27/18 16:15 01/27/18 16:15 Laboratory Results 01/27/18 04:26 01/27/18 04:26 01/26/18 01/27/18 01/28/18 06:59 06:59 06:59 Intake Total 600 Balance 600 PT 14.5 SEC (12.0-15.0) 01/25/18 20:45 INR 1.11 (0.83-1.16) 01/25/18 20:45 ICD10 Worksheet Patient Problems: Problems Problem Status Onset Diarrhea Acute Renal failure Acute Weakness Acute
[2018-01-27] MEDS: FAMOTIDINE 20 MG TAB PO SCH (21:19)
[2018-01-28 05:03] LABS: PLATELET COUNT 107 10^3/uL (150-400)
[2018-01-28] MEDS: POTASSIUM Cl (KCl) 10 MEQ in D5W 1/2 NS 1,000 ML IV SCH ×2 (05:59→13:39)
[2018-01-28] MEDS: HEPARIN 5,000 UNIT/0.5 ML SYR SC SCH ×2 (06:00→14:27)
[2018-01-28] MEDS: LEVOTHYROXINE 125 MCG TAB PO SCH (06:00)
[2018-01-28] MEDS: SUCRALFATE 1 GM/10 ML UDCUP PO SCH ×2 (09:15→13:08)
[2018-01-28 09:16] VITALS: BP 167/71; PULSE 65; RESP 17; TEMP 97.9; O2SAT 95
[2018-01-28] MEDS: ROSUVASTATIN CALCIUM 10 MG TAB PO SCH (11:01)
[2018-01-28] MEDS: FLUoxetine 20 MG CAP PO SCH (11:01)
[2018-01-28] MEDS: MULTIVITAMINS 1 EACH TAB PO SCH (11:01)
[2018-01-28] MEDS: FERROUS SULFATE 325 MG TAB PO SCH (11:01)
[2018-01-28] MEDS: buPROPion XL 150 MG TAB PO SCH (11:01)
--- NOTE | 2018-01-28 14:37 | SOAPPROG ---
[facility] Progress Note Assessment/Plan: E&M colon cancer * Metastatic Colon Cancer to non-contiguous lymph nodes: Good response to Folfox + Dilcia; next cycle due 01/30. I recommended she keep the appointment but she may need an extra week off chemo to fully recover. * Acute Gastroenteritis: No GI problems with previous cycles of chemotherapy so suspect viral, especially since other family members were ill too. Chemo may have sensitized her making it harder for her to recover. Seems to be getting better. * Hypokalemia: due to diarrhea; getting better * Acute kidney injury: improving with controlling diarrhea and hydration. * Disposition: ok to go home with follow up per oncology when cleared by [facility]. Subjective: Diarrhea nearly resolved. Feeling much better. Objective: Vital Signs Temp Pulse Resp BP Pulse Ox 36.6 C 65 17 167/71 H 95 01/28/18 09:12 01/28/18 09:12 01/28/18 09:12 01/28/18 09:12 01/28/18 09:12 Laboratory Results 01/28/18 04:40 01/28/18 04:40 01/27/18 01/28/18 01/29/18 05:59 05:59 05:59 Intake Total 600 1500 400 Balance 600 1500 400 PT 14.5 SEC (12.0-15.0) 01/25/18 20:45 INR 1.11 (0.83-1.16) 01/25/18 20:45 Laboratory Tests 01/26/18 01/27/18 01/28/18 04:28 04:26 04:40 Potassium 3.3 L 2.8 L 3.2 L BUN 46 H 32 H 14 Creatinine 2.9 H 1.1 H D 0.7 Physical Exam - Physical Exam General Appearance: no apparent distress Abdomen: normal bowel sounds, non-tender, soft ICD10 Worksheet Patient Problems: Problems Problem Status Onset Diarrhea Acute Renal failure Acute Weakness Acute
--- NOTE | 2018-01-28 15:07 | PDDCSUM ---
Discharge Summary Discharge Summary: DISCHARGE DIAGNOSES: -acute gastroenteritis, suspect viral -acute kidney injury, hemodynamic etiology with dehydration and anti attempt and receptor harrison -hypokalemia due to GI losses -dyspepsia, suspect due to acid issues as well as multiple episodes of vomiting at home -colon cancer, on chemotherapy -pyuria present on UA is not associated with any bladder or urethral or other voiding symptoms, UTI not suspected -hyponatremia due to GI losses CONSULTANTS: Dr. Keene [facility] COURSE SUMMARY: This patient who has metastatic colon cancer is currently receiving chemotherapy for recurrence, comes into the hospital with acute nausea vomiting , diarrhea, dehydration, and acute renal failure. Several other members of her family had the same nausea vomiting diarrhea illness although they have all resolved illness several days ago. The patient is nearly a week into her illness as she comes to us in the hospital. Notably she does take angiotensin receptor harrison at home. Diagnostic studies included GI pathogen panel with no organisms identified by PCR testing. She did not have any signs of peritonitis, and there was no bleeding. She did have fevers initially but these are resolved. She was hydrated carefully and her angiotensin receptor harrison was held. Her kidney function is now normal, she no longer is having nausea vomiting as he is now eating and drinking normally. She still having some loose stools without abdominal pain but she is able to adequately hydrate orally. We are discharging some anti diarrheal as we have not identified any C difficile. This is helping somewhat and is anticipated to will continue help her until this illness resolved. The patient does have chemotherapy which can cause some diarrhea but given the nature of her overall illness with vomiting and with all of her other family members ill this is felt to be most likely viral illness. At this point the patient is felt stable for discharge to home. It is recommended that she see her oncologist sometime within the next week to review her progress. She understands that if she starts to feel dehydrated or has trouble hydrating orally she may need to come back for further intravenous therapy. PENDING TEST RESULTS: None MEDICATION CHANGES: Addition of Prilosec 20 mg daily Addition of Carafate 1 g syrup before meals (the patient has received detailed instructions on how the time the Carafate with other medicines to avoid malabsorption of other medications) FOLLOW-UP PLAN: In Oncology Clinic later this week or early next week Greater than 35 minutes bedside and care coordination time today
== END 2018-01-28 16:46 | disposition home or self-care (01) | DRG 392 ==
LOC: F1N 22:45 → OBSVTOIN 01-26 18:00
PROVIDERS: ADMIT Student in an Organized Health Care Education/Training Program; ATTEND Student in an Organized Health Care Education/Training Program
DX: A08.4 Viral intestinal infection, unspecified (principal); E87.6 Hypokalemia; E87.1 Hypo-osmolality and hyponatremia; N17.9 Acute kidney failure, unspecified; R10.13 Epigastric pain; C18.9 Malignant neoplasm of colon, unspecified; E03.9 Hypothyroidism, unspecified; I10 Essential (primary) hypertension; Z87.891 Personal history of nicotine dependence; Z96.649 Presence of unspecified artificial hip joint
CPT/HCPCS: G0378; J1644; J2550; J3480